=== PATIENT | female | born 1990 | race African-American/Black ===

== ENCOUNTER 2017-04-30 11:33 | Emergency (ER) | payer SELFPAY ==
[~2017-04-30] VITALS: Ht 160 cm; Wt 89.8 kg
[~2017-04-30 11:33] MED LIST: AMOXICILLIN PO; BACTRIM DS TABL1 TA1 PO; CATAFLAM50 MG PO; CLARITIN10 M2 PO; CLEOCIN HCL300 M1 PO; FLAGYL PO; IBUPROFEN800 MG PO; KEFLEX500 M1 PO; KEFLEX500 MG PO; LORTAB 10-5001 EACH PO; LORTAB 5/500 TA1 TA1 PO; MEDROL4 MG/DOSE- PO; NAPROSYN500 MG PO; NECON PO; NO MEDICATIONS; PHENERGAN25 M1 PO; PHENERGAN25 MG PO; TRAMADOL HCL50 M1 PO; ULTRAM PO; VICODIN PO; VOLTAREN75 MG PO; ZITHROMAX PO
== END 2017-04-30 12:17 | disposition home or self-care (01) ==
LOC: CFTX 11:33 → CED 11:33 → CFTX 12:06
DX: L02.214 Cutaneous abscess of groin (principal)
CPT/HCPCS: 99282